=== PATIENT | female | born 1960 | race African-American/Black ===

== ENCOUNTER → 2016-08-25 | Outpatient (CLI) | payer MEDICARE, MEDICAID ==
[~2016-08-25] MED LIST: ALPR0.25; DISALCID; OLME20TA19; PLAQUENIL; TRAM-297; [UNRECOGNIZED DRUG - CODE]
[2016-08-25 16:40] LABS: Albumin 3.7 g/dL (3.4-5.0); BUN/Creatinine Ratio 10.1; Bilirubin, Total 0.6 mg/dL (0.2-1.0); Calcium 8.8 mg/dL (8.5-10.1); Potassium 3.4 mmol/L (3.5-5.1); Total Protein 7.6 g/dL (6.4-8.2)
[2016-08-25 17:08] LABS: DEFINITIVE VIEW TRANSMISSION; Hemoglobin 12.8 g/dL (12.2-16.2); Mean Corpuscular Hemoglobin 30.2 pg (28.0-32.0); Mean Corpuscular Hgb Conc. 32.8 g/dL (32.0-36.0); Mean Corpuscular Volume 92.1 fL (80.0-100.0); Mean Platelet Volume 8.6 fL (7.4-10.4); Platelet Count (auto) 318 10^3/uL (140-450); Red Cell Distribution Width 14.5 % (11.6-16.0); White Blood Cell 10.2 10^3/uL (4.4-10.8)
[2016-08-25 17:15] LABS: Metamyelocytes % 0; Myelocytes % 0; Promyelocytes % 0; Reactive Lymphocytes 0
[2016-08-25 18:30] LABS: Platelet Estimate Adequate
[2016-08-25 18:31] LABS: Stomatocytes Few
== END | disposition home or self-care (01) ==
LOC: LAB 15:56
PROVIDERS: ATTEND Internal Medicine
DX: I10 Essential (primary) hypertension (principal)
CPT/HCPCS: 36415; 80053; 80061; 82043; 83036; 84443; 85007; 85027

== ENCOUNTER 2018-04-18 14:53 | Emergency (ER) | payer MEDICARE, MEDICAID ==
[~2018-04-18] VITALS: Ht 165.1 cm; Wt 95.3 kg
[2018-04-18 16:10] LABS: Basophils # (auto) 0 uL; Basophils % (auto) 0.3 % (0.0-2.0); Eosinophils # (auto) 0.3 uL; Eosinophils % (auto) 5.4 % (0.0-7.0); Hematocrit 38.3 % (36.0-46.0); Hemoglobin 12.9 g/dL (12.2-16.2); Lymphocytes # (auto) 1.9 uL; Lymphocytes % (auto) 29.1 % (10.0-50.0); Mean Corpuscular Hemoglobin 31.3 pg (28.0-32.0); Mean Corpuscular Hgb Conc. 33.6 g/dL (32.0-36.0); Mean Corpuscular Volume 93.1 fL (80.0-100.0); Monocytes # (auto) 0.6 uL; Monocytes % (auto) 8.6 % (0.0-12.0); Neutrophils # (auto) 3.6 uL; Neutrophils % (auto) 56.6 % (37.0-80.0); Nucleated Red Blood Cells % 0.1 %; Platelet Count (auto) 249 10^3/uL (140-450); Red Blood Cells 4.12 10^6/uL (4.0-5.20); White Blood Cell 6.4 10^3/uL (4.4-10.8)
[2018-04-18 16:17] LABS: Albumin 3.5 g/dL (3.4-5.0); Anion Gap 6 (5-15); Blood Urea Nitrogen 15 mg/dL (7-18); Calcium 8.7 mg/dL (8.5-10.1); Carbon Dioxide 27 mmol/L (21-32); Chloride 108 mmol/L (98-107); Lipase 326 U/L (73-393); Magnesium 2.1 mg/dL (1.6-2.6); Potassium 3.5 mmol/L (3.5-5.1); Sodium 141 mmol/L (136-145)
[2018-04-18 16:25] LABS: Alanine Aminotransferase 23 U/L (13-56); Alkaline Phosphatase 106 U/L (45-117); Amylase 81 U/L (25-115); Aspartate Aminotransferase 17 U/L (15-37); BUN/Creatinine Ratio 16.9; Bilirubin, Total 0.5 mg/dL (0.2-1.0); GFR African American 84 mL/min; GFR Non-African American 69 mL/min; Glucose 104 mg/dL (74-106); Total Protein 7.4 g/dL (6.4-8.2)
[2018-04-18 16:31] VITALS: BP 157/74
[2018-04-18 18:08] LABS: Urine Amorphous Crystal FEW /hpf (None Seen); Urine Bacteria FEW /hpf (None Seen); Urine Blood TRACE /uL (Negative); Urine Specific Gravity 1.019 (1.001-1.035); Urine WBC 3 /hpf (0 - 5)
== END 2018-04-18 18:11 | disposition home or self-care (01) ==
LOC: EDBD 14:53 → ER 14:53
DX: R42 Dizziness and giddiness (principal); R55 Syncope and collapse; M19.90 Unspecified osteoarthritis, unspecified site; I10 Essential (primary) hypertension
CPT/HCPCS: 36415; 71045; 80053; 81001; 82150; 83690; 83735; 84484; 85025; 93005